=== PATIENT | female | born 1965 | race Caucasian/White ===

== ENCOUNTER 2018-08-03 08:09 | Outpatient (CLI) | payer OTHER | END 2018-08-03 08:13 | disposition home or self-care (01) | LOC: SONOGRAMA 08:09 → MAMO-SONO 08:15 | DX: E04.2 Nontoxic multinodular goiter (principal); E03.8 Other specified hypothyroidism ==

== ENCOUNTER 2020-11-06 08:09 | Outpatient (CLI) | payer OTHER | END 2020-11-06 08:39 | disposition home or self-care (01) | LOC: MAMO-SONO 08:09 → SONOGRAMA 08:45 | PROVIDERS: ATTEND Obstetrics & Gynecology | DX: N64.4 Mastodynia (principal) ==

== ENCOUNTER 2021-06-22 08:21 | Outpatient (CLI) | payer OTHER | END 2021-06-22 08:36 | disposition home or self-care (01) | LOC: SONOGRAMA 08:21 | PROVIDERS: ATTEND Obstetrics & Gynecology | DX: N63.11 Unspecified lump in the right breast, upper outer quadrant (principal); N63.22 Unspecified lump in the left breast, upper inner quadrant; E04.2 Nontoxic multinodular goiter ==

== ENCOUNTER 2022-06-24 07:40 | Outpatient (CLI) | payer OTHER | END 2022-06-24 07:54 | disposition home or self-care (01) | LOC: SONOGRAMA 07:40 | PROVIDERS: ATTEND Internal Medicine Endocrinology, Diabetes & Metabolism | DX: E04.2 Nontoxic multinodular goiter (principal) ==

== ENCOUNTER 2022-07-25 10:09 | Outpatient (CLI) | payer OTHER | END 2022-07-25 10:11 | disposition home or self-care (01) | LOC: SONOGRAMA 10:09 | PROVIDERS: ATTEND Pathology Anatomic Pathology & Clinical Pathology | DX: C73 Malignant neoplasm of thyroid gland (principal); E06.3 Autoimmune thyroiditis ==

== ENCOUNTER → 2022-08-06 | Outpatient (CLI) | payer OTHER | END | disposition home or self-care (01) | LOC: MAMO-SONO 07:54 | PROVIDERS: ATTEND Obstetrics & Gynecology | DX: N63.10 Unspecified lump in the right breast, unspecified quadrant (principal); N63.20 Unspecified lump in the left breast, unspecified quadrant ==

== ENCOUNTER 2023-07-08 07:58 | Outpatient (CLI) | payer OTHER | END 2023-07-08 08:01 | disposition home or self-care (01) | LOC: SONOGRAMA 07:58 | DX: C73 Malignant neoplasm of thyroid gland (principal); E03.9 Hypothyroidism, unspecified ==

== ENCOUNTER 2023-07-15 09:08 | Outpatient (CLI) | payer OTHER | END 2023-07-15 09:25 | disposition home or self-care (01) | LOC: SONOGRAMA 09:08 | DX: R19.00 Intra-abdominal and pelvic swelling, mass and lump, unspecified site (principal) ==

== ENCOUNTER 2023-08-13 08:16 | Outpatient (CLI) | payer OTHER | END 2023-08-13 08:30 | disposition home or self-care (01) | LOC: MAMO-SONO 08:16 | PROVIDERS: ATTEND Obstetrics & Gynecology | DX: N63.10 Unspecified lump in the right breast, unspecified quadrant (principal); N63.20 Unspecified lump in the left breast, unspecified quadrant ==